=== PATIENT | female | born 1990 | race Caucasian/White ===

== ENCOUNTER 2019-05-01 12:44 | Emergency (ER) | payer BC ==
[~2019-05-01] VITALS: Ht 165.1 cm; Wt 70.9 kg
[2019-05-01] MEDS ORDERED: IBUPROFEN 600 MG TABLET ONE (13:36)
[2019-05-01 14:00] LABS: RAPID INFLUENZA A Negative (Negative); RAPID INFLUENZA B Negative (Negative)
[2019-05-01] MEDS ORDERED: IBUPROFEN 600 MG TABLET PO ONE (14:00)
--- NOTE | 2019-05-01 14:53 | NUR ---
ONLINE CONTENT COORDINATOR: PT WALKED BACK FROM LOBBY TO ROOM AT THIS TIME. NO ACUTE DISTRESS NOTED.
--- NOTE | 2019-05-01 14:59 | NUR ---
PT HERE FOR DIARRHEA THAT STARTED YESTERDAY AROUND 0900. PT STATES IT KEPT HER UP ALL NIGHT AND SHE HAS BEEN GOING EVERY TEN MIN. PROVIDER FINISHED AT BEDSIDE. PT CONNECTED TO MONITOR. NADN. PIV STARTED. BLOOD DRAWN. FLUIDS INFUSING. PT PROVIDED WITH WARM BLANKET. CALL LIGHT IN REACH.
[2019-05-01] MEDS ORDERED: SODIUM CHLORIDE FLUSH 10ML SYR IVF ONE (15:00)
[2019-05-01] MEDS ORDERED: SODIUM CHLORIDE 0.9% 1,000ML IVBOLUS ONE ×2 (15:00→17:00)
[2019-05-01] MEDS ORDERED: PEROXETINE (15:03)
--- NOTE | 2019-05-01 15:15 | NUR ---
PT TO RADIOLOGY NOW.
[2019-05-01 15:26] LABS: BASOPHILS # (AUTO) 0.02 x10^3/uL (0-0.1); BASOPHILS % (AUTO) 0 % (0-1); EOSINOPHILS # (AUTO) 0.02 x10^3/uL (0-0.4); EOSINOPHILS % (AUTO) 1 % (1-7); LYMPHOCYTES # (AUTO) 0.86 x10^3/uL (1-3.4); LYMPHOCYTES % (AUTO) 21 % (22-44); MD NO; MEAN CORPUSCULAR HEMOGLOBIN 31.3 pg (27.0-34.8); MEAN CORPUSCULAR HGB CONC 34.4 g/dL (32.4-35.8); MEAN CORPUSCULAR VOLUME 90.8 fL (80-100); MEAN PLATELET VOLUME 7.2 fL (7.4-10.4); MONOCYTES # (AUTO) 0.34 x10^3/uL (0.2-0.8); MONOCYTES % (AUTO) 8 % (2-9); NEUTROPHILS # (AUTO) 2.81 x10^3/uL (1.8-6.8); NEUTROPHILS % (AUTO) 70 % (42-75); PLATELET COUNT 284 x10^3/uL (130-400); RED BLOOD COUNT 4.54 x10^6/uL (3.82-5.3); RED CELL DISTRIBUTION WIDTH 12.8 % (9.6-15.2)
[2019-05-01 15:33] LABS: ALBUMIN 3.5 g/dL (3.4-5.0); ANION GAP 9 mmol/L (5-15); CALCIUM 8.7 mg/dL (8.5-10.1); CHLORIDE 110 mmol/L (98-107)
[2019-05-01 15:39] LABS: ALANINE AMINOTRANSFERASE 29 U/L (12-78); ALKALINE PHOSPHATASE 65 U/L (45-117); BILIRUBIN,TOTAL 0.3 mg/dL (0.2-1.0); CREATININE 0.86 mg/dL (0.55-1.02); TOTAL PROTEIN 7.8 g/dL (6.4-8.2)
[2019-05-01] MEDS ORDERED: LOPERAMIDE 2 MG CAPSULE ONE (16:24)
[2019-05-01 17:26] VITALS: BP 103/72
== END 2019-05-01 18:36 | disposition home or self-care (01) ==
LOC: ED 17:43
DX: R19.7 Diarrhea, unspecified (principal); R50.9 Fever, unspecified; R00.0 Tachycardia, unspecified
CPT/HCPCS: 36415; 71046; 74021; 80053; 83690; 84703; 85025; 87400; 96360; 96361; 99284; J7030